=== PATIENT | female | born 1980 | race Caucasian/White ===

== ENCOUNTER 2017-12-18 20:34 | Emergency (ER) | payer SELFPAY ==
[~2017-12-18] VITALS: Ht 167.6 cm; Wt 165.9 kg
[2017-12-18 20:37] VITALS: TEMP 97.5
[2017-12-18 21:14] LABS: COLLECTION METHOD CLEAN CATCH
[2017-12-18 21:18] LABS: BASO % 0.4 % (0.0-2.0); EOS % 0.7 % (0-4.0); GRAN # 2.3 (1.4-6.5); GRAN % 50.4 % (42.2-75.2); HEMATOCRIT 44.2 % (37.0-47.0); HEMOGLOBIN 15.2 g/dl (12.5-16.0); LYMPH # 1.9 (1.2-3.4); LYMPH % 41.3 % (20.0-51.0); MEAN CELL VOLUME 105 fl (80.0-100.0); MEAN CORPUSCULAR HEMOGLOBIN 36 pg (27.0-31.0); MEAN CORPUSCULAR HGB CONC 34 g/dl (33.0-37.0); MEAN PLATELET VOLUME 9.4 fl (7.4-10.4); MONO # 0.3 (0.1-0.6); PLATELET COUNT 86 K/mm3 (130-400); RED BLOOD COUNT 4.22 M/mm3 (4.10-5.30); REDCELL DISTRIBUTION WIDTH-CV 12.9 % (11.5-14.5)
[2017-12-18 21:22] LABS: PH 6 (5-8); SQUAMOUS EPITHELIAL None Seen /hpf; URINE APPEARANCE Clear; URINE BACTERIA None Seen /hpf; URINE BILIRUBIN Negative (NEGATIVE); URINE BLOOD Negative (NEGATIVE); URINE COLOR Straw; URINE GLUCOSE Negative (NEGATIVE); URINE KETONE Negative (NEGATIVE); URINE LEUKOCYTE ESTERASE Negative (NEGATIVE); URINE NITRATE Negative (NEGATIVE); URINE PROTEIN(semi-quant) Negative (NEGATIVE); URINE RBC None Seen /hpf; URINE UROBILINOGEN Negative (NEGATIVE)
[2017-12-18 21:28] LABS: BILIRUBIN,TOTAL 0.8 mg/dL (0.0-1.0); CALCIUM 8.7 mg/dL (8.4-10.2); CREATININE, serum 0.65 mg/dL (0.52-1.25); POTASSIUM 4.9 mmol/L (3.4-5.0); TOTAL PROTEIN 7.9 gm/dL (6.4-8.2)
[2017-12-18 21:30] LABS: TRICYCLIC ANTIDEPRESS URINE NEGATIVE
[2017-12-18] MEDS ORDERED: LEXAPRO20 MG PO (22:16)
[2017-12-18] MEDS ORDERED: SERAX 10MG10 MG/CAP PO (22:16)
[2017-12-19 00:34] VITALS: BP 119/61
[2017-12-19] MEDS ORDERED: OMNICEF 300MG300 MG PO (01:01)
[2017-12-19] MEDS ORDERED: NEURONTIN300 MG/CAP PO (01:01)
[2017-12-19] MEDS ORDERED: LIBRIUM 25M25 MG/CAP PO (01:01)
[2017-12-19] MEDS ORDERED: PHENERGAN 25 TA25 MG PO (01:01)
[2017-12-19] MEDS ORDERED: DOXYCYCLINE HY100 MG PO (01:02)
[2017-12-19 02:28] VITALS: PULSE 97
== END 2017-12-19 02:32 | disposition home or self-care (01) ==
LOC: COL.ER 20:34
PROVIDERS: Emergency Medicine
DX: K70.10 Alcoholic hepatitis without ascites (principal); R60.9 Edema, unspecified; F10.129 Alcohol abuse with intoxication, unspecified; F17.210 Nicotine dependence, cigarettes, uncomplicated; Y90.8 Blood alcohol level of 240 mg/100 ml or more
CPT/HCPCS: A4216; J0456; J0696; J1940; J7040; J7050; Q9967